=== PATIENT | male | born 1930 | race Caucasian/White ===

== ENCOUNTER → 2017-02-16 | Outpatient (CLI) | payer BC ==
[~2017-02-16] MED LIST: ASPEC81 PO; CEPH500C PO; CHOL200010 PO; CHOL4POW6 PO; FURO40TA3 PO; GLC500 PO; LEVO75TA PO; LEVO75TA36 PO; NRN/300 PO; SPIR25TA89 PO; TIOT1AER2 INH; WARF10TA PO; WARF5TAB90 PO; ZNTT/150 PO
[2017-02-16 09:39] LABS: PROTHROMBIN TIME (PATIENT) 46.5 SECONDS (9.0-12.0)
[2017-02-16 09:43] LABS: INR 4.1 (0.9-1.1)
--- NOTE | 2017-02-24 10:41 | CODING QUERY NO DIAGNOSIS ---
: 1930 TREATMENT RENDERED WITHOUT A DIAGNOSIS To promote full compliance with coding requirements relating to patient care, physician participation is requested in all cases of senior it business analyst uncertainty. Please assist us with providing a diagnosis/symptom for the test(s) below: A diagnosis/symptom was not documented on your Order. A valid diagnosis/symptom is required to bill all insurances. Please remember that we are unable to code a diagnosis of rule out, probable, possible, questionable, or suspected. Tests that require a diagnosis: DOS: 02/16/17 PT/INR DIAGNOSIS: Provider Signature: Date: Thank you Martina Ng Health Information Management Once completed, please kindly fax back to [phone] For questions please call [phone]
== END | disposition home or self-care (01) ==
LOC: C.LABVPSUW 08:44
PROVIDERS: ATTEND Pharmacist Pharmacotherapy
DX: Z95.2 Presence of prosthetic heart valve (principal); I67.2 Cerebral atherosclerosis

== ENCOUNTER → 2017-02-18 | Outpatient (CLI) | payer BC ==
--- NOTE | 2017-02-18 14:51 | DIAGNOSTIC IMAGING REPORT ---
L FOOT MIN 3 VIEWS ROUTINE CLINICAL HISTORY: Nonhealing wound COMPARISON: None. DISCUSSION: There are vascular calcifications present. No acute fractures or dislocations are visualized. No destructive lesions are evident on conventional radiographic evaluation. There are mild degenerative changes. IMPRESSION: 1. No acute fractures 2. No conventional radiographic evidence of acute osteomyelitis. Electronically signed by: Stanislaw Olivares M.D. 02/18/2017 2:50 PM Dictated Date/Time: 02/18/2017 2:49 PM
== END | disposition home or self-care (01) ==
LOC: C.RAD 14:29
PROVIDERS: ATTEND Emergency Medicine
DX: S91.105A Unspecified open wound of left lesser toe(s) without damage to nail, initial encounter (principal); X58.XXXA Exposure to other specified factors, initial encounter

== ENCOUNTER → 2017-05-04 | Outpatient (CLI) | payer BC ==
[~2017-05-04] MED LIST changes: -CEPH500C PO; -GLC500 PO; -LEVO75TA36 PO; -SPIR25TA89 PO; -WARF5TAB90 PO
--- NOTE | 2017-05-04 13:49 | DIAGNOSTIC IMAGING REPORT ---
CT OF THE LEFT FOOT WITHOUT CONTRAST CLINICAL HISTORY: Left second toe nonhealing wound. COMPARISON STUDY: No previous studies for comparison. TECHNIQUE: Axial images of the left foot were obtained without IV contrast. Sagittal and coronal reconstructions were viewed. FINDINGS: Alignment of the tarsometatarsal joints is anatomic. No fracture or suspicious lesion within the left foot is noted. There is extensive vascular calcification. There is moderate subcutaneous edema of the dorsum of the left midfoot. A bandage on the left second toe is noted. There is no CT evidence of osteomyelitis within the left foot. No abscess is identified on this unenhanced examination. Talar dome is intact. 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 IMPRESSION: 1. No CT evidence of osteomyelitis within the left foot. No abscess identified on unenhanced exam. 2. Moderate subcutaneous soft tissue swelling of the dorsal aspect of the left midfoot. 3. Extensive vascular calcification. Electronically signed by: Stef Tate M.D. 05/04/2017 1:48 PM Dictated Date/Time: 05/04/2017 1:39 PM
== END | disposition home or self-care (01) ==
LOC: C.CTS 13:03
PROVIDERS: ATTEND Emergency Medicine
DX: S91.105A Unspecified open wound of left lesser toe(s) without damage to nail, initial encounter (principal); X58.XXXA Exposure to other specified factors, initial encounter

== ENCOUNTER → 2017-07-29 | Outpatient (CLI) | payer BC ==
[~2017-07-29] MED LIST changes: +GLC/500 PO; +RANI150T85 PO; -ZNTT/150 PO
[2017-07-29 10:28] LABS: INR 1.4 (0.9-1.1)
== END | disposition home or self-care (01) ==
LOC: C.LABVPSUW 09:31
PROVIDERS: ATTEND Internal Medicine Cardiovascular Disease
DX: I67.2 Cerebral atherosclerosis (principal); Z86.73 Personal history of transient ischemic attack (TIA), and cerebral infarction without residual deficits; I48.2 Chronic atrial fibrillation

== ENCOUNTER → 2017-09-15 | Outpatient (CLI) | payer BC ==
[2017-09-15 09:46] LABS: INR 2.2 (0.9-1.1)
== END | disposition home or self-care (01) ==
LOC: C.LABVPSUW 09:10
PROVIDERS: ATTEND Internal Medicine
DX: I67.2 Cerebral atherosclerosis (principal); Z86.73 Personal history of transient ischemic attack (TIA), and cerebral infarction without residual deficits; I48.2 Chronic atrial fibrillation